=== PATIENT | female | born 1990 | race African-American/Black ===

== ENCOUNTER 2019-12-11 14:32 | Emergency (ER) | payer SELFPAY ==
[~2019-12-11] VITALS: Ht 165.1 cm; Wt 132.0 kg
[2019-12-11 15:59] LABS: BASOPHILS % 0.9 % (0.0-2.0); EOSINOPHILS % 2.5 % (0.0-5.0); HEMATOCRIT. 34.2 % (36.0-48.0); HEMOGLOBIN. 10.9 g/dL (12.0-16.0); LYMPHOCYTES % 30.1 % (20.0-50.0); MEAN CORPUSCULAR HEMOGLOBIN 21.6 pg (28.0-32.0); MEAN CORPUSCULAR VOLUME 67.7 fL (81.0-99.0); MONOCYTES % 11.3 % (2.0-8.0); NEUTROPHILS % 55.2 % (40.0-76.0); PLATELET 322 x1000/uL (130-400); RED BLOOD CELL COUNT 5.06 mill/uL (4.2-5.4); RED CELL DISTRIBUTION WIDTH 19.4 % (11.6-14.6)
[2019-12-11 16:01] LABS: CHLORIDE 110 mEq/L (98-107)
[2019-12-11 16:03] LABS: INR 1.1; PROTHROMBIN TIME 11.4 sec (9.6-11.0)
[2019-12-11 16:04] LABS: ETHANOL BLOOD < 10 mg/dL
[2019-12-11 16:17] LABS: HCG SCREEN NEGATIVE
[2019-12-11] MEDS ORDERED: IOHEXOL-350 100 ML BOTTLE ONE (17:00)
[2019-12-11] MEDS ORDERED: KETOROLAC 15MG/ML VIAL IV ONE (19:00)
[2019-12-11 21:30] VITALS: BP 112/90
[2019-12-11 23:12] LABS: PLATELET ESTIMATE NORMAL
== END 2019-12-11 21:54 | disposition home or self-care (01) ==
LOC: ER 14:53
DX: R55 Syncope and collapse (principal); R07.89 Other chest pain
CPT/HCPCS: 36415; 71045; 71275; 80053; 80320; 83605; 83880; 84484; 84703; 85025; 85610; 93005; 96374; 99285; J1885; Q9967; G0480